=== PATIENT | male | born 1965 | race Caucasian/White ===

== ENCOUNTER 2018-02-02 16:01 | Emergency (ER) | payer OTHER, MEDICAID ==
[2018-02-02] MEDS ORDERED: SODIUM CHLORIDE 0.9% 1L BAG IV* (17:40)
[2018-02-02] MEDS ORDERED: ACETAMINOPHEN 325 MG TAB PO (18:00)
== END 2018-02-02 18:28 | disposition left against medical advice (07) ==
LOC: E/R 16:01
DX: R50.9 Fever, unspecified (principal); I10 Essential (primary) hypertension
CPT/HCPCS: 71045; 93005; 99284-25

== ENCOUNTER 2018-02-06 12:04 | Emergency (ER) | payer OTHER ==
[2018-02-06] MEDS: SOD CHLORIDE 0.9% 1,000 ML IV (13:53)
[2018-02-06 13:55] LABS: ADD MAN DIFF? NO
[2018-02-06 14:03] LABS: BASOPHILS % 0.4 % (0.0-2.0); EOSINOPHILS # 0.2 10^3/ul (0.0-0.5); EOSINOPHILS % 2.7 % (0.0-7.0); HEMATOCRIT 40.5 % (42.0-52.0); HEMOGLOBIN 13.8 g/dl (14.0-18.0); LYMPHOCYTES # 1.7 10^3/ul (0.8-2.9); LYMPHOCYTES % 23.4 % (15.0-51.0); MEAN CORPUSCULAR HEMOGLOBIN 30.1 pg (29.0-33.0); MEAN CORPUSCULAR HGB CONC 34.1 g/dl (32.0-37.0); MEAN CORPUSCULAR VOLUME 88.2 fl (82.0-101.0); MEAN PLATELET VOLUME 10.9 fl (7.4-10.4); MONOCYTE # 0.6 10^3/ul (0.3-0.9); MONOCYTES % 8.9 % (0.0-11.0); NEUTROPHIL # 4.6 10^3/ul (1.6-7.5); NEUTROPHILS % 64.3 % (39.0-77.0); PLATELET COUNT 291 10^3/UL (140-415); RED BLOOD COUNT 4.59 10^6/ul (4.70-6.10); RED CELL DISTRIBUTION WIDTH 11.8 % (11.5-14.5)
[2018-02-06 14:03] LABS: WHITE BLOOD COUNT 7.1 10^3/ul (4.8-10.8)
[2018-02-06 14:12] LABS: ADD UMIC YES; UR ASCORBIC ACID NEGATIVE (NEGATIVE); UR BILIRUBIN (Dip) NEGATIVE (NEGATIVE); UR BLOOD (Dip) NEGATIVE (NEGATIVE); UR CLARITY SLIGHTLY CLOUDY (CLEAR); UR COLOR YELLOW (YELLOW); UR GLUCOSE (Dip) NEGATIVE (NEGATIVE); UR KETONES (Dip) NEGATIVE (NEGATIVE); UR LEUKOCYTE ESTERASE (Dip) NEGATIVE Leu/ul (NEGATIVE); UR MUCUS MANY /HPF (NONE SEEN); UR NITRITE (Dip) NEGATIVE (NEGATIVE); UR RBC 2 /HPF (0-5); UR SPECIFIC GRAVITY (Dip) 1.025 (1.003-1.030); UR TOTAL PROTEIN (Dip) 2+ mg/dl (NEGATIVE); UR UROBILINOGEN (Dip) 1+ mg/dL (NEGATIVE); UR WBC 1 /HPF (0-5)
[2018-02-06 14:18] LABS: INR 0.93; PROTIME 12.5 Sec (11.9-14.9)
[2018-02-06 14:19] LABS: LACTIC ACID 0.8 mmol/L (0.5-2.0)
[2018-02-06 14:19] LABS: PARTIAL THROMBOPLASTIN TIME 30.9 Sec (23.0-35.0)
[2018-02-06 14:25] LABS: ALANINE AMINOTRANSFERASE 34 IU/L (13-69); ALBUMIN 4.5 g/dl (3.3-4.9); ALBUMIN/GLOBULIN RATIO 1.21; ALKALINE PHOSPHATASE 55 IU/L (42-121); AMYLASE 82 U/L (11-123); ANION GAP 12 (5-13); ASPARTATE AMINO TRANSFERASE 28 IU/L (15-46); BILIRUBIN,INDIRECT 0.2 mg/dl (0-1.1); BILIRUBIN,TOTAL 0.2 mg/dl (0.2-1.3); BLOOD UREA NITROGEN 15 mg/dl (7-20); CALCIUM 9.8 mg/dl (8.4-10.2); CARBON DIOXIDE 27 mmol/L (21-31); CHLORIDE 99 mmol/L (97-110); CREATININE 0.87 mg/dl (0.61-1.24); Estimated GFR > 60 mL/min (>60); GLUCOSE 106 mg/dl (70-220); LIPASE 220 U/L (23-300); POTASSIUM 3.8 mmol/L (3.5-5.1); SODIUM 138 mmol/L (135-144); TOTAL PROTEIN 8.2 g/dl (6.1-8.1)
[2018-02-06 14:36] LABS: TROPONIN-I < 0.012 ng/ml (0.000-0.120)
== END 2018-02-06 15:08 | disposition home or self-care (01) ==
LOC: E/R 12:04
DX: R50.9 Fever, unspecified (principal); I10 Essential (primary) hypertension; F17.210 Nicotine dependence, cigarettes, uncomplicated
CPT/HCPCS: 80053; 81001; 82150; 83605; 83690; 84484; 85025; 85610; 85730; 87040; 87086; 87400; 99284-25

== ENCOUNTER 2018-02-10 15:56 | Inpatient (IN) | payer OTHER ==
[2018-02-10] MEDS: ONDANSETRON 4 MG INJ IV (16:37)
[2018-02-10] MEDS: SOD CHLORIDE 0.9% 1,000 ML IV ×2 (16:38→21:32)
[2018-02-10 16:42] LABS: ADD MAN DIFF? NO
[2018-02-10 16:48] LABS: WHITE BLOOD COUNT 9.8 10^3/ul (4.8-10.8)
[2018-02-10 16:48] LABS: BASOPHILS % 0.3 % (0.0-2.0); EOSINOPHILS # 0.3 10^3/ul (0.0-0.5); EOSINOPHILS % 2.7 % (0.0-7.0); HEMATOCRIT 41.8 % (42.0-52.0); HEMOGLOBIN 14.2 g/dl (14.0-18.0); LYMPHOCYTES # 2.6 10^3/ul (0.8-2.9); LYMPHOCYTES % 26.1 % (15.0-51.0); MEAN CORPUSCULAR HEMOGLOBIN 30.1 pg (29.0-33.0); MEAN CORPUSCULAR VOLUME 88.7 fl (82.0-101.0); MEAN PLATELET VOLUME 10.2 fl (7.4-10.4); MONOCYTE # 0.8 10^3/ul (0.3-0.9); MONOCYTES % 7.7 % (0.0-11.0); NEUTROPHIL # 6.2 10^3/ul (1.6-7.5); NEUTROPHILS % 62.9 % (39.0-77.0); PLATELET COUNT 456 10^3/UL (140-415); RED BLOOD COUNT 4.71 10^6/ul (4.70-6.10); RED CELL DISTRIBUTION WIDTH 11.9 % (11.5-14.5)
[2018-02-10 17:00] LABS: INR 0.92; PROTIME 12.4 Sec (11.9-14.9)
[2018-02-10 17:01] LABS: PARTIAL THROMBOPLASTIN TIME 29.1 Sec (23.0-35.0)
[2018-02-10 17:05] LABS: ALANINE AMINOTRANSFERASE 28 IU/L (13-69); ALBUMIN/GLOBULIN RATIO 1.21; ALKALINE PHOSPHATASE 56 IU/L (42-121); ANION GAP 14 (5-13); ASPARTATE AMINO TRANSFERASE 23 IU/L (15-46); BILIRUBIN,INDIRECT 0.4 mg/dl (0-1.1); BILIRUBIN,TOTAL 0.4 mg/dl (0.2-1.3); BLOOD UREA NITROGEN 13 mg/dl (7-20); CALCIUM 10.4 mg/dl (8.4-10.2); CARBON DIOXIDE 28 mmol/L (21-31); CHLORIDE 97 mmol/L (97-110); CREATININE 0.77 mg/dl (0.61-1.24); Estimated GFR > 60 mL/min (>60); GLUCOSE 112 mg/dl (70-220); LIPASE 223 U/L (23-300); POTASSIUM 4.2 mmol/L (3.5-5.1); SODIUM 139 mmol/L (135-144); TOTAL PROTEIN 9.1 g/dl (6.1-8.1)
[2018-02-10 17:11] LABS: ADD UMIC NO; UR ASCORBIC ACID NEGATIVE (NEGATIVE); UR BILIRUBIN (Dip) NEGATIVE (NEGATIVE); UR BLOOD (Dip) NEGATIVE (NEGATIVE); UR CLARITY CLEAR (CLEAR); UR COLOR STRAW (YELLOW); UR GLUCOSE (Dip) NEGATIVE (NEGATIVE); UR KETONES (Dip) NEGATIVE (NEGATIVE); UR LEUKOCYTE ESTERASE (Dip) NEGATIVE Leu/ul (NEGATIVE); UR NITRITE (Dip) NEGATIVE (NEGATIVE); UR SPECIFIC GRAVITY (Dip) 1.004 (1.003-1.030); UR TOTAL PROTEIN (Dip) NEGATIVE (NEGATIVE); UR UROBILINOGEN (Dip) NEGATIVE (NEGATIVE)
[2018-02-10 17:16] LABS: TROPONIN-I < 0.012 ng/ml (0.000-0.120)
[2018-02-10] MEDS: LIDOCAINE 1% (MPF) 30 ML INJ INJ (17:42)
[2018-02-10] MEDS: LIDOCAINE 1% (MDV) 20 ML INJ SC (18:00)
[2018-02-10] MEDS: KETOROLAC 15 MG INJ IV (18:02)
[2018-02-10] MEDS ORDERED: HYDROCODONE/APAP (5/325) TAB PO (19:00)
[2018-02-10] MEDS ORDERED: hydrALAzine 20 MG INJ IV (19:00)
[2018-02-10] MEDS ORDERED: NACL 0.9% 3 ML SYG IV (19:00)
[2018-02-10] MEDS ORDERED: MAGNESIUM HYDROXIDE 30ML CUP PO (19:00)
[2018-02-10] MEDS ORDERED: ZOLPIDEM 5 MG TAB PO (19:00)
[2018-02-10] MEDS ORDERED: ONDANSETRON 4 MG INJ IV (19:00)
[2018-02-10] MEDS ORDERED: HYDROmorphONE 0.5 MG/0.5 ML SYG IV (19:00)
[2018-02-10] MEDS: ACETAMINOPHEN 325 MG TAB PO (20:12)
[2018-02-10] MEDS: METHYLPRED. NA SUCC 1,000 MG in DEXTROSE 5% 50 ML IVPB (21:31)
[2018-02-10] MEDS: GABAPENTIN 300 MG CAP PO (21:39)
[2018-02-10] MEDS: BACLOFEN 10 MG TAB PO (21:39)
[2018-02-10] MEDS: GEMFIBROZIL 600 MG TAB PO (22:53)
[2018-02-11] MEDS: SOD CHLORIDE 0.9% 1,000 ML IV ×4 (04:46→23:00)
[2018-02-11 06:45] LABS: ADD MAN DIFF? NO
[2018-02-11 06:59] LABS: BASOPHILS % 0.2 % (0.0-2.0); HEMATOCRIT 38.3 % (42.0-52.0); HEMOGLOBIN 13.2 g/dl (14.0-18.0); LYMPHOCYTES # 0.8 10^3/ul (0.8-2.9); LYMPHOCYTES % 15.9 % (15.0-51.0); MEAN CORPUSCULAR HEMOGLOBIN 30.6 pg (29.0-33.0); MEAN CORPUSCULAR HGB CONC 34.5 g/dl (32.0-37.0); MEAN CORPUSCULAR VOLUME 88.7 fl (82.0-101.0); MEAN PLATELET VOLUME 10.9 fl (7.4-10.4); MONOCYTE # 0.1 10^3/ul (0.3-0.9); MONOCYTES % 1.2 % (0.0-11.0); NEUTROPHIL # 4.1 10^3/ul (1.6-7.5); NEUTROPHILS % 82.5 % (39.0-77.0); PLATELET COUNT 383 10^3/UL (140-415); RED BLOOD COUNT 4.32 10^6/ul (4.70-6.10); RED CELL DISTRIBUTION WIDTH 11.7 % (11.5-14.5)
[2018-02-11 06:59] LABS: WHITE BLOOD COUNT 4.9 10^3/ul (4.8-10.8)
[2018-02-11 07:24] LABS: ANION GAP 13 (5-13); BLOOD UREA NITROGEN 16 mg/dl (7-20); CALCIUM 9.7 mg/dl (8.4-10.2); CARBON DIOXIDE 26 mmol/L (21-31); CHLORIDE 102 mmol/L (97-110); CREATININE 0.67 mg/dl (0.61-1.24); Estimated GFR > 60 mL/min (>60); GLUCOSE 150 mg/dl (70-220); MAGNESIUM 2.1 mg/dl (1.7-2.5); PHOSPHORUS 4.4 mg/dl (2.5-4.9); POTASSIUM 4.5 mmol/L (3.5-5.1); SODIUM 141 mmol/L (135-144)
[2018-02-11 07:26] LABS: HEMOGLOBIN A1C 5.3 % (0-5.9)
[2018-02-11] MEDS: ATENOLOL 25 MG TAB PO ×2 (09:00→16:31)
[2018-02-11] MEDS: METHYLPRED. NA SUCC 1,000 MG in DEXTROSE 5% 50 ML IVPB (11:03)
[2018-02-11] MEDS: BACLOFEN 10 MG TAB PO ×3 (11:04→20:20)
[2018-02-11] MEDS: GEMFIBROZIL 600 MG TAB PO ×2 (11:04→20:29)
[2018-02-11] MEDS: GABAPENTIN 300 MG CAP PO ×3 (11:04→20:20)
[2018-02-11] MEDS: LOSARTAN 50 MG TAB PO (11:05)
[2018-02-11] MEDS: HYDROCHLOROTHIAZIDE 12.5 MG CAP PO (13:33)
[2018-02-11] MEDS ORDERED: INTERFERON BETA 30 MCG IM (16:30)
[2018-02-11] MEDS: AVONEX 30 MCG/0.5 ML IM (18:44)
[2018-02-11] MEDS: ACETAMINOPHEN 325 MG TAB PO (19:46)
[2018-02-11] MEDS: ATORVASTATIN 10 MG TAB PO ×2 (20:22→20:34)
[2018-02-12] MEDS: SOD CHLORIDE 0.9% 1,000 ML IV ×2 (00:12→08:58)
[2018-02-12] MEDS: GABAPENTIN 300 MG CAP PO (08:53)
[2018-02-12] MEDS: METHYLPRED. NA SUCC 1,000 MG in DEXTROSE 5% 50 ML IVPB (08:53)
[2018-02-12] MEDS: GEMFIBROZIL 600 MG TAB PO (08:54)
[2018-02-12] MEDS: ATENOLOL 25 MG TAB PO (08:55)
[2018-02-12] MEDS: LOSARTAN 50 MG TAB PO (08:55)
[2018-02-12] MEDS: BACLOFEN 10 MG TAB PO (08:57)
[2018-02-12] MEDS: HYDROCHLOROTHIAZIDE 12.5 MG CAP PO (08:57)
[2018-02-12] MEDS: DOCUSATE SODIUM 100 MG CAP PO (09:04)
[2018-02-12] MEDS ORDERED: MEMANTINE 10 MG TAB PO (21:00)
== END 2018-02-12 11:40 | disposition home or self-care (01) | DRG 59 ==
LOC: E/R 15:56 → 2NE 17:43
DX: G35 Multiple sclerosis (principal); R47.01 Aphasia; B34.9 Viral infection, unspecified; I10 Essential (primary) hypertension; E78.5 Hyperlipidemia, unspecified; K21.9 Gastro-esophageal reflux disease without esophagitis
CPT/HCPCS: 70450; 70552; 71045; 80048; 80053; 81003; 83036; 83690; 83735; 84100; 84484; 85025; 85610; 85730; 87040; 87086; 92610; 93005; 96374; 97161; 99285-25